=== PATIENT | female | born 1970 | race Caucasian/White ===

== ENCOUNTER 2016-09-06 23:31 | Inpatient (IN) | payer BC ==
[2016-09-06] MEDS ORDERED: Ondansetron INJ* 2 MG/ML VIAL IV ONE (23:58)
[2016-09-06] MEDS ORDERED: Morphine INJ* 4 MG/ML 1 ML CARPUJECT IV ONE (23:58)
[2016-09-06] MEDS ORDERED: NS 0.9% 1000 ML* 1,000 ML IV ONE (23:58)
--- NOTE | 2016-09-07 00:10 | ED ---
Abdominal Pain/Female - HPI Summary HPI Summary: Patient presents with epigastric and periumbilical pain that began suddenly at 4pm. She had gotten off of work at 2:00 and was having a beer and pretzels when the pain began. She drank some rafa ruma without relief. The pain is sharp and is making her sweat. It radiates to her sides, but not completely around to her back. She has not had pain like this before. Deep breaths make it worse and leaning back, but not laying down, make it better. She denies CP, SOB, urinary symptoms, diarrhea, constipation, vaginal bleeding or fevers. She has her period and has a Mirena for control in her marriage. - History of Current Complaint Chief Complaint: EDAbdPain Stated Complaint: ABD PAIN Time Seen by Provider: 09/06/16 23:44 Hx Obtained From: Patient, Family/Campaign Management Senior Manager ?: No Onset/Duration: Sudden Onset Timing: Constant Severity Initially: Severe Severity Currently: Severe Pain Intensity: 10 Location: Epigastric, Umbilical Radiates: Yes Radiates to: Back Character: Sharp Aggravating Factor(s): Movement, Deep Breaths Alleviating Factor(s): Position - leaning back Associated Signs and Symptoms: Positive: Diaphoresis Allergies/Adverse Reactions: Allergies Allergy/AdvReac Type Severity Reaction Status Date / Time Amoxicillin Allergy Rash Verified 09/06/16 23:37 Erythromycin Allergy Rash Verified 09/06/16 23:37 Penicillins [PCN] Allergy Rash Verified 09/06/16 23:37 Home Medications: Home Medications Cetirizine HCl [Zyrtec Allergy 10 MG TAB] 10 mg PO DAILY 09/07/16 [History Confirmed 09/07/16] Hydrochlorothiazide TAB* [Hydrodiuril TAB*] 25 mg PO DAILY 09/07/16 [History Confirmed 09/07/16] Metoprolol Succinate [Toprol Xl] 50 mg PO DAILY 09/07/16 [History Confirmed 04/16] PMH/Surg Hx/FS Hx/Imm Hx Cardiovascular History: Reports: Hx Hypertension Musculoskeletal History: Reports: Other Musculoskeletal History - morbid obesity - Cancer History Hx Chemotherapy: No Hx Radiation Therapy: No Infectious Disease History: No Infectious Disease History: Denies: Traveled Outside the [place] in Last 30 Days - Family History Known Family History: Positive: None - Social History Occupation: Employed Full-time Lives: With Family Alcohol Use: Weekly Substance Use Type: Reports: None Smoking Status (MU): Never Smoked Tobacco Review of Systems Positive: Skin Diaphoresis. Negative: Fever, Chills Negative: Chest Pain Negative: Shortness Of Breath Positive: Abdominal Pain - epigastric and periumbilical. Negative: Vomiting, Diarrhea, Nausea Positive: no symptoms reported Negative: Edema Negative: Rash, Bruising Negative: Weakness, Paresthesia All Other Systems Reviewed And Are Negative: Yes Physical Exam Triage Information Reviewed: Yes Vital Signs On Initial Exam: Initial Vitals Temp Pulse Resp BP Pulse Ox 96.5 F 70 20 115/86 100 09/06/16 23:37 09/06/16 23:37 09/06/16 23:37 09/06/16 23:37 09/06/16 23:37 Vital Signs Reviewed: Yes Appearance: Positive: Well-Appearing, Pain Distress - Patient is leaning back, and bracing her weight on her arms in obvious discomfort., Obese Skin: Positive: Warm, Skin Color Reflects Adequate Perfusion, Dry, Soft, Diaphoretic Head/Face: Positive: Normal Head/Face Inspection Eyes: Positive: EOMI, YULIA, Conjunctiva Clear ENT: Positive: Hearing grossly normal Neck: Positive: Supple, Nontender, No Lymphadenopathy Respiratory/Lung Sounds: Positive: Clear to Auscultation, Breath Sounds Present Cardiovascular: Positive: RRR Abdomen Description: Positive: Soft. Negative: Nontender - TTP in epigastric and periumbilical region, CVA Tenderness (R), CVA Tenderness (L), Distended - body habitus is limiting, Hepatomegaly, McBurney's Point Tenderness, Peritoneal Signs, Pulsatile Mass Bowel Sounds: Positive: Hypoactive Musculoskeletal: Negative: Edema Left, Edema Right Neurological: Positive: Sensory/Motor Intact, Alert, Oriented to Person Place, Time, NV Bundle Intact Distally Psychiatric: Positive: Affect/Mood Appropriate AVPU Assessment: Alert Diagnostics - Vital Signs Vital Signs Temp Pulse Resp BP Pulse Ox 09/06/16 23:37 96.5 F 70 20 115/86 100 - Laboratory Result Diagrams: 09/07/16 05:29 09/07/16 05:29 Lab Statement: Any lab studies that have been ordered have been reviewed, and results considered in the medical decision making process. - CT No standard instances CT Interpretation: Positive (See Comments) CT Interpretation Completed By: Radiologist - pancreatitis - Ultrasound No standard instances Ultrasound Interpretation: No Acute Changes Ultrasound Interpretation Completed By: Radiologist - EKG No standard instances Cardiac Rate: NL EKG Rhythm: Sinus Rhythm ST Segment: Normal Ectopy: None Re-Evaluation - Re-Evaluation First Eval Re-Evaluation Time: 01:45 Change: Improved - Patient is comfortable Abdominal Pain Fem Course/Dx - Course Course Of Treatment: The patient's labs were discussed with Dr. Christy, who recommended admission. The hospitalist, Dr. Ram, was consulted and agreed to admit. - Diagnoses Differential Diagnosis: Positive: Abdominal Aortic Aneurysm, Bowel Obstruction, Gall Bladder Disease, Hepatitis, Ovarian Cyst, Pancreatitis, Renal Colic, Urinary Tract Infection Provider Diagnoses: Pancreatitis - Provider Notifications Discussed Care Of Patient With: Dr. Christy, ED attending; Dr. Ram, hospital medicine. Instructed by Provider To: Admit As Inpatient Discharge - Discharge Plan Condition: Stable Disposition: ADMITTED TO [facility]
[2016-09-07 00:21] LABS: Hematocrit 43 % (35-47); Hemoglobin 14.5 g/dl (12.0-16.0); Mean Corpuscular HGB Conc 34 g/dl (31-36); Mean Corpuscular Hemoglobin 30 pg (27-31); Mean Corpuscular Volume 89 fL (80-97); Mean Platelet Volume 11 um3 (7.4-10.4); Red Blood Count 4.84 10^6/ul (4.0-5.4); Red Cell Distribution Width 13 % (10.5-15); White Blood Count 11.8 10^3/ul (3.5-10.8)
[2016-09-07] MEDS ORDERED: Morphine INJ* 4 MG/ML 1 ML CARPUJECT IV ONE (00:26)
[2016-09-07 00:32] LABS: Albumin 4.2 g/dL (3.2-5.2); BUN/Creatinine Ratio 15.9 (8-20); C Reactive Protein 10.02 mg/L (< 5.00); Calcium 9.6 mg/dL (8.6-10.3); EGFR African American 96.1 (>60); EGFR Non-African American 74.7 (>60); Potassium 3.7 mmol/L (3.5-5.0); Total Bilirubin 1.5 mg/dL (0.2-1.0); Total Protein 7.2 g/dL (6.4-8.9)
[2016-09-07 00:33] LABS: Troponin I 0.01 ng/mL (<0.04)
[2016-09-07] MEDS ORDERED: Iohexol 300* (CONTRAST) 10 ML SDV IV ONE (01:00)
--- NOTE | 2016-09-07 01:37 | HP ---
H&P (Free Text) History and Physical: PCP: Sammy Terrazas MD Date/Time of Evaluation: 09/07/2016 0115 CC: epigastric pain HPI: Mrs Mcmanus is a 45YO morbidly obese female HX HTN who reports coming home from work, drinking a beer, and subsequently developing upper abdominal "gas" associated with nausea around 1600. By 2300, the epigastric discomfort had become 10/10 dull/aching and without alleviating factors. Deep inspiration, movement, cough, etc increased the pain. She did not vomit, but reports some constipation. She had some chills and sweats, but no fevers. She has no history of similar. ED evaluation is positive for gall stones and acute pancreatitis. PMedHx HTN Allergies Amoxicillin Allergy (Verified 09/06/16 23:37) Rash Erythromycin Allergy (Verified 09/06/16 23:37) Rash Penicillins [PCN] Allergy (Verified 09/06/16 23:37) Rash Ambulatory Orders Cetirizine HCl [Zyrtec Allergy 10 MG TAB] 10 mg PO DAILY 09/07/16 Hydrochlorothiazide TAB* [Hydrodiuril TAB*] 25 mg PO DAILY 09/07/16 Metoprolol Succinate [Toprol Xl] 50 mg PO DAILY 09/07/16 PSurgHx R knee arthroscopy for meniscal tear tonsillectomy SocHx: no tobacco or recreational drugs, 1-2 beers nightly; lives with her ; works at [employer]; full code status FamHx: positive for DM & HTN ROS: as above, otherwise reviewed and all were negative Constitutional: NAD, normally developed, morbidly obese white female vitals: Vital Signs Temp 36.4 C 09/07/16 03:06 Pulse 62 09/07/16 03:06 Resp 18 09/07/16 03:30 BP 135/74 09/07/16 03:06 Pulse Ox 93 09/07/16 03:06 Intake & Output 09/06/16 09/06/16 09/07/16 11:59 23:59 11:59 Intake Total 1002 Balance 1002 Weight 125.191 kg 127.097 kg Intake: IV Fluids 1002 HEENM: atraumatic; sclera/conjunctiva: non-icteric/clear; hearing: clinically intact; oropharynx: clear, mucosa tacky Neck: soft tissue: non-tender; thyroid: normal Pulmonary: clear to auscultation bilaterally, good aeration, no accessory muscle use CV: RR/RR, normal S1S2, no carotid bruit, no jugular venous distention, 2+ B DP/ PT, trace BLE edema Abdominal: soft, non-distended, diffusely moderately tender worst in epigastrum , no rebound/guarding/rigidity, hypoactive bowel sounds, no hepatosplenomegaly or masses, no costovertebral angle tenderness Musculoskeletal: general: grossly intact; gait: stable Integumental: normal appearance and texture of exposed skin Psychiatric orientation: AA&O to PPS affect: calm mood: cooperative eye contact: good content: reliable responses: timely insight: good Testing: Lab Results 09/07/16 09/07/16 09/07/16 Range/Units 00:05 00:05 00:05 WBC 11.8 H (3.5-10.8) 10^3/ul RBC 4.84 (4.0-5.4) 10^6/ul Hgb 14.5 (12.0-16.0) g/dl Hct 43 (35-47) % MCV 89 (80-97) fL MCH 30 (27-31) pg MCHC 34 (31-36) g/dl RDW 13 (10.5-15) % Plt Count 182 (150-450) 10^3/ul MPV 11 H (7.4-10.4) um3 Neut % (Auto) 76.8 (38-83) % Lymph % (Auto) 14.8 L (25-47) % Henderson % (Auto) 6.4 (1-9) % Eos % (Auto) 1.4 (0-6) % Baso % (Auto) 0.6 (0-2) % Absolute Neuts (auto) 9.1 H (1.5-7.7) 10^3/ul Absolute Lymphs (auto) 1.7 (1.0-4.8) 10^3/ul Absolute Monos (auto) 0.8 (0-0.8) 10^3/ul Absolute Eos (auto) 0.2 (0-0.6) 10^3/ul Absolute Basos (auto) 0.1 (0-0.2) 10^3/ul Absolute Nucleated RBC 0 10^3/ul Nucleated RBC % 0 Sodium 134 (133-145) mmol/L Potassium 3.7 (3.5-5.0) mmol/L Chloride 100 L (101-111) mmol/L Carbon Dioxide 26 (22-32) mmol/L Anion Gap 8 (2-11) mmol/L BUN 13 (6-24) mg/dL Creatinine 0.82 (0.51-0.95) mg/dL Est GFR ( Amer) 96.1 (>60) Est GFR (Non-Af Amer) 74.7 (>60) BUN/Creatinine Ratio 15.9 (8-20) Glucose 121 H (70-100) mg/dL Lactic Acid 1.5 (0.5-2.0) mmol/L Calcium 9.6 (8.6-10.3) mg/dL Total Bilirubin 1.50 H (0.2-1.0) mg/dL AST 307 H (13-39) U/L ALT 198 H (7-52) U/L Alkaline Phosphatase 86 (34-104) U/L Troponin I 0.01 (<0.04) ng/mL C-Reactive Protein 10.02 H (< 5.00) mg/L Total Protein 7.2 (6.4-8.9) g/dL Albumin 4.2 (3.2-5.2) g/dL Globulin 3.0 (2-4) g/dL Albumin/Globulin Ratio 1.4 (1-3) Amylase 823 H (29-103) U/L Lipase 3130 H (11.0-82.0) U/L ECG, personally reviewed: NSR rate 68, T-wave inversion in III CT abd/pel W: ordered, pending Impression: 45F presenting with acute pancreatitis ? etiology DIAGNOSIS & PLAN Primary acute pancreatitis : IVFs : strict I&Os : pain control via hydromorphone SOUND TECHNICIAN : anti-emetics : incentive spirometry : NPO : supportive care Secondary HTN : hold anti-hypertensives in current setting, restart when clinically indicated Admission Rational: inpatient for management of acute pancreatitis inappropriate for outpatient setting DVTp: SCDs & heparin SQ Code Status: full HCP:
[2016-09-07] MEDS ORDERED: HYDROmorphone INJ* 1 MG/ML CARPUJECT SYRINGE IV ONE ×2 (02:30→04:00)
[2016-09-07] MEDS ORDERED: LORazepam INJ* 2 MG/ML 1 ML VIAL IV PRN (03:14)
[2016-09-07] MEDS ORDERED: Ondansetron INJ* 2 MG/ML VIAL IV PRN (03:14)
[2016-09-07] MEDS ORDERED: PROCHLORPERAZINE INJ 5 MG/ML 2 ML VIAL IV PRN (03:14)
[2016-09-07] MEDS ORDERED: HYDROmorphone PCA* 20 MG/20 ML PCA.SYRING IVPB SCH (04:00)
[2016-09-07 05:58] LABS: Hematocrit 42 % (35-47); Hemoglobin 14.2 g/dl (12.0-16.0); Mean Corpuscular HGB Conc 34 g/dl (31-36); Mean Corpuscular Hemoglobin 31 pg (27-31); Mean Corpuscular Volume 91 fL (80-97); Mean Platelet Volume 11 um3 (7.4-10.4); Red Blood Count 4.57 10^6/ul (4.0-5.4); Red Cell Distribution Width 13 % (10.5-15); White Blood Count 15.9 10^3/ul (3.5-10.8)
[2016-09-07 06:22] LABS: Albumin 4.2 g/dL (3.2-5.2); BUN/Creatinine Ratio 14.1 (8-20); Calcium 9.3 mg/dL (8.6-10.3); Direct Bilirubin 0.3 mg/dL (0.03-0.18); EGFR African American 101.8 (>60); EGFR Non-African American 79.2 (>60); Globulin 2.8 g/dL (2-4); Potassium 4.8 mmol/L (3.5-5.0); Total Bilirubin 1.3 mg/dL (0.2-1.0)
--- NOTE | 2016-09-07 07:38 | RAD ---
INDICATION: Epigastric pain. COMPARISON: Correlation is made with a CT of the abdomen and pelvis of the same date. TECHNIQUE: Multiple real-time images of the right upper quadrant were obtained. FINDINGS: There are gallstones present. No gallbladder wall thickening or pericholecystic fluid is present. No intra or extrahepatic ductal distention is present. The common bile duct measured 0.6 cm in diameter. The liver is normal in size and increased in echogenicity which correlates with fatty infiltration on the prior CT study. There appears be focal sparing adjacent to the gallbladder. No focal hepatic abnormality is seen. The pancreas is partially obscured by overlying bowel gas. The right kidney is normal in size without evidence for hydronephrosis. The results of this exam were called to the emergency department charge nurse Aditi. IMPRESSION: 1. CHOLELITHIASIS. 2. HEPATIC STEATOSIS.
--- NOTE | 2016-09-07 08:15 | RAD ---
Indication: Epigastric pain. Contrast: Administered 150.2 ml of OMNIPAQUE 300 mg/ml CT of the abdomen and pelvis was performed after oral and IV contrast administration. Coronal and sagittal reconstructed images were obtained. Lung bases demonstrate no pleural fluid, nodules or masses. Heart is of normal size without evidence of pericardial effusion. The liver measures 20 cm in length. It is diffusely decreased in density consistent with hepatic steatosis. There is a hyperenhancing lesion in the left lobe of liver measuring up to 2.6 cm. There may be a central scar noted. Correlation with MRI of the liver is suggested. Tiny focal area of hyperdensity is noted in the right lobe of liver just adjacent to the gallbladder fossa which May represent focal fatty sparing. The gallbladder demonstrates gallstones. No pericholecystic fluid or wall thickening is identified. The common duct is not dilated. The pancreas demonstrates no mass or pancreatic duct dilatation. There is mild enlargement of the pancreas with peripancreatic fluid especially around pancreatic head. This may represent acute pancreatitis. No adrenal lesions are noted. The kidneys demonstrate symmetric nephrograms without focal lesions. No retroperitoneal lymphadenopathy is noted. CT of the pelvis demonstrates urinary bladder to be unremarkable. IUD is in place. The ovaries demonstrate cysts in both ovaries. No hernias are noted. IMPRESSION: PERIPANCREATIC FLUID CONSISTENT WITH PANCREATITIS. DIFFUSE FATTY INFILTRATION OF LIVER WITH HYPERENHANCING LESION IN THE LEFT LOBE. CORRELATION WITH MRI IS SUGGESTED.
[2016-09-07] MEDS ORDERED: HYDROmorphone INJ* 1 MG/ML CARPUJECT SYRINGE IV SLOW PU PRN (09:37)
--- NOTE | 2016-09-07 09:55 | PN ---
Subjective Date of Service: 09/07/16 Interval History: Patient seen this morning. Says pain is controlled, less than a one. She has felt sweaty. No SOB. Family History: Unchanged from Admission Social History: Unchanged from Admission Past Medical History: Unchanged from Admission Objective Active Medications: Acetaminophen (Tylenol Tab*) 650 mg PO Q6H PRN Hydromorphone HCl (Dilaudid Iv*) 0.5 mg IV SLOW PU Q2H PRN Lactated Ringer's (Lactated Ringers 1000 Ml Bag*) 1,000 mls @ 150 mls/hr IV PER RATE ROSANA Lorazepam (Ativan Inj*) 1 mg IV BEDTIME PRN Ondansetron HCl (Zofran Inj*) 4 mg IV Q6H PRN Pantoprazole Sodium (Protonix Iv*) 40 mg IV DAILY ROSANA Prochlorperazine Edisylate (Compazine Inj*) 10 mg IV Q6H PRN Vital Signs 09/07/16 09/07/16 09/07/16 01:30 02:00 02:45 Temperature 97.5 F Pulse Rate 66 65 62 Respiratory 15 16 18 Rate Blood Pressure 137/78 137/79 135/74 (mmHg) O2 Sat by Pulse 94 95 93 Oximetry 09/07/16 09/07/16 09/07/16 03:38 06:19 06:27 Temperature Pulse Rate 62 Respiratory 18 18 18 Rate Blood Pressure 135/74 (mmHg) O2 Sat by Pulse 94 Oximetry 09/07/16 09/07/16 09/07/16 06:47 07:19 07:34 Temperature 97.4 F Pulse Rate 62 70 Respiratory 18 15 15 Rate Blood Pressure 135/74 116/75 (mmHg) O2 Sat by Pulse 94 98 Oximetry Oxygen Devices in Use Now: None Appearance: Middle-aged, F, laying in bed in NAD Eyes: No Scleral Icterus Ears/Nose/Mouth/Throat: - - Dry MM Neck: NL Appearance and Movements; NL JVP Respiratory: Symmetrical Chest Expansion and Respiratory Effort, Clear to Auscultation Cardiovascular: NL Sounds; No Murmurs; No JVD, RRR Abdominal: - - Obese, soft, non-distended, TTP in epigastric area, BS+ Lymphatic: No Cervical Adenopathy Extremities: No Edema Skin: No Rash or Ulcers Neurological: Alert and Oriented x 3 Result Diagrams: 09/07/16 05:29 03/10/17 05:29 Assess/Plan/Problems-Billing Assessment: Acute pancreatitis in a 45 yo F with hx of obesity and HTN - Patient Problems (1) Acute pancreatitis Current Visit: Yes Comment: Continue anaglesia, will stop UI ARCHITECT and transition to prn IV dilaudid. Continue IVF, antiemetics. Keep NPO for now. I think etiology is more likely EtOH than gallstones with normal alk phos and AST>ALT. No stones in ducts on current imaging and no ductal dilatation. Hold HCTZ. Can consider cholecystectomy as outpatient. (2) HTN (hypertension) Current Visit: Yes Comment: Hold Metoprolol and HCTZ. Consider switching HCTZ to different agent not associated with pancreatitis. (3) DVT prophylaxis Current Visit: Yes Comment: HSQ Status and Disposition: Inpatient, likely discharge in 24-48 hours
[2016-09-07] MEDS: Pantoprazole IV* 40 MG IV SCH (10:01)
[2016-09-07] MEDS: Heparin VIAL(*) 5000 UNITS/ML VIAL (FIVE THOUSAND) SUBCUT SCH ×2 (15:15→21:57)
[2016-09-07] MEDS: Acetaminophen TAB* 325 MG PO PRN ×2 (15:41→21:50)
[2016-09-08] MEDS: Heparin VIAL(*) 5000 UNITS/ML VIAL (FIVE THOUSAND) SUBCUT SCH ×3 (06:35→21:29)
[2016-09-08] MEDS: Acetaminophen TAB* 325 MG PO PRN (06:44)
--- NOTE | 2016-09-08 07:09 | PN ---
Subjective Date of Service: 09/08/16 Interval History: Patient seen this morning. Says pain was about a 4 at one point last night, otherwise feeling well. Some nasal congestion. No fever or chills. Family History: Unchanged from Admission Social History: Unchanged from Admission Past Medical History: Unchanged from Admission Objective Active Medications: Acetaminophen (Tylenol Tab*) 650 mg PO Q6H PRN Heparin Sodium (Porcine) (Heparin Vial(*)) 5,000 units SUBCUT Q8HR ROSANA Hydromorphone HCl (Dilaudid Iv*) 0.5 mg IV SLOW PU Q2H PRN Lactated Ringer's (Lactated Ringers 1000 Ml Bag*) 1,000 mls @ 150 mls/hr IV PER RATE ROSANA Lorazepam (Ativan Inj*) 1 mg IV BEDTIME PRN Ondansetron HCl (Zofran Inj*) 4 mg IV Q6H PRN Pantoprazole Sodium (Protonix Iv*) 40 mg IV DAILY ROSANA Prochlorperazine Edisylate (Compazine Inj*) 10 mg IV Q6H PRN Vital Signs 09/07/16 09/07/16 09/07/16 07:19 07:34 08:00 Temperature 97.4 F Pulse Rate 70 Respiratory 15 15 15 Rate Blood Pressure 116/75 (mmHg) O2 Sat by Pulse 98 Oximetry 09/07/16 09/07/16 09/07/16 10:10 11:19 15:38 Temperature 97.3 F 97.4 F 97.5 F Pulse Rate 63 69 63 Respiratory 15 14 Rate Blood Pressure 120/69 103/61 113/60 (mmHg) O2 Sat by Pulse 95 98 100 Oximetry 09/07/16 09/07/16 09/07/16 19:43 20:00 22:06 Temperature 97.7 F Pulse Rate 81 Respiratory 17 16 16 Rate Blood Pressure 127/73 (mmHg) O2 Sat by Pulse 93 Oximetry 09/07/16 09/07/16 23:06 23:52 Temperature 97.6 F Pulse Rate 73 Respiratory 16 16 Rate Blood Pressure 116/70 (mmHg) O2 Sat by Pulse 97 Oximetry Oxygen Devices in Use Now: None Appearance: Middle-aged, F, laying in bed in NAD Eyes: No Scleral Icterus Ears/Nose/Mouth/Throat: - - Dry MM Neck: NL Appearance and Movements; NL JVP Respiratory: Symmetrical Chest Expansion and Respiratory Effort, Clear to Auscultation Cardiovascular: NL Sounds; No Murmurs; No JVD, RRR Abdominal: - - Obese, soft, non-distended, mild TTP in epigastric area Lymphatic: No Cervical Adenopathy Extremities: No Edema Skin: No Rash or Ulcers Neurological: Alert and Oriented x 3 Result Diagrams: 09/07/16 05:29 09/07/16 05:29 Assess/Plan/Problems-Billing Assessment: Acute pancreatitis in a 45 yo F with hx of obesity and HTN - Patient Problems (1) Acute pancreatitis Current Visit: Yes Comment: Start clear liquids. Continue anaglesia with IV dilaudid. Continue IVF, antiemetics. I think etiology is more likely EtOH than gallstones with normal alk phos and AST>ALT. No stones in ducts on current imaging and no ductal dilatation. Hold HCTZ. Can consider cholecystectomy as outpatient. (2) HTN (hypertension) Current Visit: Yes Comment: Hold Metoprolol and HCTZ. Consider switching HCTZ to different agent not associated with pancreatitis. (3) DVT prophylaxis Current Visit: Yes Comment: HSQ Status and Disposition: Inpatient, likely discharge in 24-48 hours
[2016-09-08 07:54] LABS: Hematocrit 39 % (35-47); Hemoglobin 13.2 g/dl (12.0-16.0); Mean Corpuscular HGB Conc 34 g/dl (31-36); Mean Corpuscular Hemoglobin 31 pg (27-31); Mean Corpuscular Volume 92 fL (80-97); Mean Platelet Volume 12 um3 (7.4-10.4); Red Blood Count 4.22 10^6/ul (4.0-5.4); Red Cell Distribution Width 13 % (10.5-15)
[2016-09-08] MEDS: Pantoprazole IV* 40 MG IV SCH (08:11)
[2016-09-08 08:12] LABS: BUN/Creatinine Ratio 11.5 (8-20); Calcium 8.8 mg/dL (8.6-10.3); EGFR African American 101.8 (>60); EGFR Non-African American 79.2 (>60); Potassium 3.4 mmol/L (3.5-5.0)
[2016-09-08] MEDS: Cetirizine* 10 MG TAB PO SCH (08:12)
[2016-09-09] MEDS: Heparin VIAL(*) 5000 UNITS/ML VIAL (FIVE THOUSAND) SUBCUT SCH (05:54)
[2016-09-09] MEDS: Pantoprazole IV* 40 MG IV SCH (07:58)
[2016-09-09] MEDS: Cetirizine* 10 MG TAB PO SCH (07:58)
[2016-09-09 08:22] LABS: BUN/Creatinine Ratio 7.4 (8-20); Calcium 8.7 mg/dL (8.6-10.3); EGFR African American 97.5 (>60); EGFR Non-African American 75.8 (>60); Potassium 3.4 mmol/L (3.5-5.0)
[2016-09-09 09:48] VITALS: BP 129/79
--- NOTE | 2016-09-10 00:51 | DS ---
DISCHARGE SUMMARY: DATE OF ADMISSION: 09/07/16 DATE OF DISCHARGE: 09/09/16 PRIMARY CARE PHYSICIAN: Aaron Terrazas MD. PRINCIPAL DISCHARGE DIAGNOSIS: Acute pancreatitis. SECONDARY DIAGNOSIS: Hypertension. DISCHARGE MEDICATION REGIMEN: 1. Percocet 5/325 mg one tablet by mouth every 4 hours as needed for pain. 2. Cetirizine 10 mg by mouth daily. 3. Metoprolol succinate 50 mg by mouth daily. STUDIES DONE DURING HOSPITALIZATION: Gallbladder ultrasound, impression: Cholelithiasis, hepatic steatosis, common bile duct is 0.6 cm in diameter. No intra or extrahepatic ductal dilatation. CT abdomen and pelvis with contrast, impression: Peripancreatic fluid consistent with pancreatitis, diffuse fatty infiltration of liver with hyperenhancing lesion in the left lobe, correlation with MRI is suggested. HISTORY OF PRESENT ILLNESS AND HOSPITAL SUMMARY: Please see the full history and physical done by Dr. Billy Patino for full details. Briefly, Ms. Mcmanus is a 45-year-old female with a past medical history of morbid obesity and hypertension, who presented to the hospital with abdominal pain. This happened shortly after drinking a beer at home along with some pretzels. In the ED, she was found to have elevated lipase as well as elevated LFTs, AST and ALT; however, alk phos was normal. The patient was made n.p.o. and given IV fluids and analgesia with subsequent improvement in her symptoms and labs. As noted on imaging, it was not clear that this was secondary to gallstones. The patient does have cholelithiasis; however, her alk phos was normal and there were no stones noted in the common bile duct during imaging. This could be possibly due to her alcohol use. Hydrochlorothiazide can sometimes cause pancreatitis, so this was held on discharge. The patient was continued on metoprolol only. Her diet was advanced and she tolerated a low-fat diet with no issue. She will be discharged on a low-fat diet and was instructed to follow up with her PCP to discuss whether she would benefit from a surgical consultation for cholecystectomy. TIME SPENT: Total time spent on this discharge, 45 minutes. This is a summary of the hospitalization, please see the full medical record for further details. CC: Aaron Terrazas MD * [id number]/CPS #: [id number] MTDD
== END 2016-09-09 10:46 | disposition home or self-care (01) | DRG 282 ==
LOC: ED 23:31 → MED 09-07 01:13
PROVIDERS: ADMIT Hospitalist; ATTEND Hospitalist
DX: K85.20 Alcohol induced acute pancreatitis without necrosis or infection (principal); Z68.42 Body mass index [BMI] 45.0-49.9, adult; K76.0 Fatty (change of) liver, not elsewhere classified; K80.20 Calculus of gallbladder without cholecystitis without obstruction; Z72.89 Other problems related to lifestyle; E66.01 Morbid (severe) obesity due to excess calories; I10 Essential (primary) hypertension; Z82.49 Family history of ischemic heart disease and other diseases of the circulatory system; Z83.3 Family history of diabetes mellitus; Z88.0 Allergy status to penicillin; Z88.1 Allergy status to other antibiotic agents
CPT/HCPCS: 36415; 74177; 76705; 80048; 80053; 80076; 82150; 83605; 83690; 84484; 85025; 85027; 86140; 93005; A9270-GY; J1170; J1644; J2270; J2405; Q9967

== ENCOUNTER 2018-06-29 08:02 | Emergency (ER) | payer BC, OTHER ==
[2018-06-29] MEDS ORDERED: Dexamethasone IV* 4 MG/ML 1 ML (4 MG) IV SLOW PU ONE (08:20)
[2018-06-29] MEDS ORDERED: Famotidine IV* 10 MG/ML 2 ML (20 mg) IV SLOW PU ONE (08:20)
[2018-06-29] MEDS ORDERED: NS 0.9% 1000 ML* 1,000 ML IV ONE (08:20)
[2018-06-29] MEDS ORDERED: diPHENhydraMINE PO* 50 MG PO ONE (08:21)
[2018-06-29 08:41] LABS: ABS Basophils 0 10^3/ul (0-0.2); ABS Eosinophils 0.2 10^3/ul (0-0.6); ABS Lymphocytes 1.9 10^3/ul (1.0-4.8); ABS Monocytes 0.4 10^3/ul (0-0.8); ABS Neutrophils 4.2 10^3/ul (1.5-7.7); ABS Nucleated RBC 0 10^3/ul; Eosinophil % 3.5 %; Hematocrit 42 % (35-47); Hemoglobin 14.6 g/dl (12.0-16.0); Lymphocyte % 28.2 %; Mean Corpuscular HGB Conc 35 g/dl (31-36); Mean Corpuscular Hemoglobin 32 pg (27-31); Mean Corpuscular Volume 91 fL (80-97); Mean Platelet Volume 10.8 fL (7.4-10.4); Nucleated Red Blood Cells % 0; Platelet Count 167 10^3/ul (150-450); Red Blood Count 4.64 10^6/ul (4.00-5.40); Red Cell Distribution Width 13 % (10.5-15); White Blood Count 6.8 10^3/ul (3.5-10.8)
[2018-06-29 09:02] LABS: Albumin 4.4 g/dL (3.2-5.2); Albumin/Globulin Ratio 1.7 (1-3); BUN/Creatinine Ratio 19.3 (8-20); Calcium 9.6 mg/dL (8.6-10.3); EGFR Non-African American 68.3 (>60); Globulin 2.6 g/dL (2-4); Potassium 3.9 mmol/L (3.5-5.0); Total Bilirubin 0.9 mg/dL (0.2-1.0)
--- NOTE | 2018-06-29 11:31 | ED ---
Allergic Reaction/Systemic - HPI Summary HPI Summary: Patient is a 47-year-old female presenting to the ED with possible allergic reaction. She stated last evening at around 9:30 PM after proximal 1 hour of eating 2 separate [place] cookies which were dropped off by friends she began having left lower lip swelling which radiated to the bilateral cheeks. Denied any airway difficulty, SOB or difficulty swallowing. She states she took 50 mg Benadryl by mouth just before bed and was able to sleep tonight. She woke this morning which which she felt like was worsening symptoms and came to the ED. She denies any known known allergies. She does endorse taking lisinopril/ Hydrochlorothiazide x approximately 6 months and has never had a reaction. She has never had a allergic reaction in the past to anything. - History of Current Complaint Chief Complaint: EDAllergicReaction Time Seen by Provider: 06/29/18 08:17 Hx Obtained From: Patient Onset/Duration: Sudden Onset Timing: Constant Severity Initially: Moderate Severity Currently: Moderate Pain Intensity: 0 Pain Scale Used: 0-10 Numeric Location: Discrete @ - left lower lip swelling Associated Signs And Symptoms: Positive: Negative - Related Hx Possible Reaction To: Unknown - Allergies/Home Medications Allergies/Adverse Reactions: Allergies Allergy/AdvReac Type Severity Reaction Status Date / Time amoxicillin Allergy Rash Verified 06/29/18 08:11 erythromycin base Allergy Rash Verified 06/29/18 08:11 Penicillins Allergy Rash Verified 06/29/18 08:11 Home Medications: Home Medications Lisinopril/HCTZ 10/12.5(NF) [Zestoretic 10/12.5(NF)] 1 tab PO DAILY 06/29/18 [ History Confirmed 06/29/18] PMH/Surg Hx/FS Hx/Imm Hx Previously Healthy: Yes Endocrine/Hematology History: Denies: Hx Diabetes Cardiovascular History: Reports: Hx Hypertension Denies: Hx Pacemaker/ICD History: Denies: Hx Dialysis, Hx Renal Disease Musculoskeletal History: Reports: Other Musculoskeletal History - morbid obesity Sensory History: Reports: Hx Contacts or Glasses Denies: Hx Hearing Aid Opthamlomology History: Reports: Hx Contacts or Glasses Psychiatric History: Denies: Hx Panic Disorder - Cancer History Hx Chemotherapy: No Hx Radiation Therapy: No - Surgical History Surgery Procedure, Year, and Place: KNEE Hx Anesthesia Reactions: No - Immunization History Hx Pertussis Vaccination: No Immunizations Up to Date: Yes Infectious Disease History: No Infectious Disease History: Denies: Traveled Outside the [place] in Last 30 Days - Family History Known Family History: Positive: None - Social History Occupation: Employed Full-time Lives: With Family Alcohol Use: Weekly Alcohol Amount: "A couple" Hx Substance Use: No Substance Use Type: Reports: None Hx Tobacco Use: No Smoking Status (MU): Never Smoked Tobacco Review of Systems Constitutional: Negative Positive: Skin Diaphoresis. Negative: Fever, Chills, Fatigue Positive: Other - lower lip swelling. Negative: Epistaxis, Dental Pain Negative: Palpitations, Chest Pain Negative: Abdominal Pain, Vomiting, Diarrhea, Nausea Negative: Arthralgia, Myalgia Positive: Other - lip swelling Neurological: Negative All Other Systems Reviewed And Are Negative: Yes Physical Exam Triage Information Reviewed: Yes Vital Signs On Initial Exam: Initial Vitals Temp Pulse Resp BP Pulse Ox 96.5 F 85 16 123/74 98 06/29/18 08:08 06/29/18 08:08 06/29/18 08:08 06/29/18 08:08 06/29/18 08:08 Vital Signs Reviewed: Yes Appearance: Positive: Well-Appearing, Well-Nourished Skin: Positive: Warm, Skin Color Reflects Adequate Perfusion Head/Face: Positive: Normal Head/Face Inspection, Other - lip swelling without other swelling of the cheeks or lips Eyes: Positive: EOMI, YULIA, Conjunctiva Clear Neck: Positive: Supple, No Lymphadenopathy Respiratory/Lung Sounds: Positive: Clear to Auscultation, Breath Sounds Present Cardiovascular: Positive: RRR, Pulses are Symmetrical in both Upper and Lower Extremities Musculoskeletal: Positive: Normal, Strength/ROM Intact Neurological: Positive: Sensory/Motor Intact, Alert, Oriented to Person Place, Time, Speech Normal Psychiatric: Positive: Normal, Affect/Mood Appropriate AVPU Assessment: Alert Diagnostics - Vital Signs Vital Signs Temp Pulse Resp BP Pulse Ox 06/29/18 10:32 85 22 125/79 94 06/29/18 10:02 84 32 127/77 94 06/29/18 10:00 79 16 96 06/29/18 09:32 80 19 124/77 98 06/29/18 09:02 79 21 124/92 95 06/29/18 09:00 81 24 94 06/29/18 08:41 90 96 06/29/18 08:08 96.5 F 85 16 123/74 98 - Laboratory Lab Results: Lab Results 06/29/18 06/29/18 06/29/18 Range/Units 08:27 08:27 08:27 WBC 6.8 (3.5-10.8) 10^3/ul RBC 4.64 (4.00-5.40) 10^6/ul Hgb 14.6 (12.0-16.0) g/dl Hct 42 (35-47) % MCV 91 (80-97) fL MCH 32 H (27-31) pg MCHC 35 (31-36) g/dl RDW 13 (10.5-15) % Plt Count 167 (150-450) 10^3/ul MPV 10.8 H (7.4-10.4) fL Neut % (Auto) 62.0 % Lymph % (Auto) 28.2 % Callahan % (Auto) 5.6 % Eos % (Auto) 3.5 % Baso % (Auto) 0.7 % Absolute Neuts (auto) 4.2 (1.5-7.7) 10^3/ul Absolute Lymphs (auto) 1.9 (1.0-4.8) 10^3/ul Absolute Monos (auto) 0.4 (0-0.8) 10^3/ul Absolute Eos (auto) 0.2 (0-0.6) 10^3/ul Absolute Basos (auto) 0 (0-0.2) 10^3/ul Absolute Nucleated RBC 0 10^3/ul Nucleated RBC % 0 Sodium 137 (135-145) mmol/L Potassium 3.9 (3.5-5.0) mmol/L Chloride 102 (101-111) mmol/L Carbon Dioxide 26 (22-32) mmol/L Anion Gap 9 (2-11) mmol/L BUN 17 (6-24) mg/dL Creatinine 0.88 (0.51-0.95) mg/dL Est GFR ( Amer) 82.6 (>60) Est GFR (Non-Af Amer) 68.3 (>60) BUN/Creatinine Ratio 19.3 (8-20) Glucose 127 H (70-100) mg/dL Lactic Acid 1.1 (0.5-2.0) mmol/L Calcium 9.6 (8.6-10.3) mg/dL Total Bilirubin 0.90 (0.2-1.0) mg/dL AST 18 (13-39) U/L ALT 16 (7-52) U/L Alkaline Phosphatase 56 (34-104) U/L Total Creatine Kinase 74 (10-223) U/L Total Protein 7.0 (6.4-8.9) g/dL Albumin 4.4 (3.2-5.2) g/dL Globulin 2.6 (2-4) g/dL Albumin/Globulin Ratio 1.7 (1-3) Result Diagrams: 06/29/18 08:27 06/29/18 08:27 Lab Statement: Any lab studies that have been ordered have been reviewed, and results considered in the medical decision making process. Allergic Reaction Course/Dx - Course Course Of Treatment: Patient is evaluated for possible allergic reaction. On arrival, patient has left lower lip swelling without bilateral cheek swelling. Airway is patent. Mallampati score 1. She denies any airway compromise, difficulty breathing, SOB, CP, tingling in the throat or feelings of throat tightening. She is able to eat and drink okay. She was concerned as after 2 Benadryl last evening, she feels the swelling decreased, however this morning she feels the swelling increased back to where it was just prior to her administration of Benadryl last evening. She denies any known allergies. She did eat 2 cookies from friends last evening and allergic reaction occurred exactly when and where after. She has been taking lisinopril for approximately 6 months and has never had a problem with this medication. She is given Decadron, to saline, by mouth Benadryl and IV famotidine. She states she feels improved, however slight left lower lip swelling remains. As the airway is patent and she has no other complaints, she'll be discharged with prednisone, famotidine and Benadryl. She will discontinue her lisinopril at this time and follow up with her PCP regarding an alternative. She will remain on her metoprolol. - Diagnoses Provider Diagnoses: Allergic reaction, Lip swelling Discharge - Sign-Out/Discharge Documenting (check all that apply): Patient Departure - Discharge Plan Condition: Stable Disposition: HOME Prescriptions: Famotidine TAB* [Pepcid 20 MG TAB*] 20 mg PO BID #10 tab predniSONE TAB* [Deltasone TAB*] 50 mg PO DAILY #5 tab MDD 1 Patient Education Materials: Angioedema (ED) Referrals: Cary BARRETT,Kristin Tay [Primary Care Provider] - Additional Instructions: Please follow up with PCP If you develop any worsening symptoms, return to the ED immediately Prednisone - start tomorrow - take in the morning once daily x 5 days Famotidine, first dose is this evening, take twice daily x 4 days Benadryl 50mg three times daily if symptoms continue, otherwise, only at bedtime Discontinue your lisinopril. - Billing Disposition and Condition Condition: STABLE Disposition: Home
[2018-06-29 11:42] VITALS: BP 120/95
== END 2018-06-29 11:20 | disposition home or self-care (01) ==
LOC: ED 08:02
DX: T78.40XA Allergy, unspecified, initial encounter (principal); X58.XXXA Exposure to other specified factors, initial encounter; R22.0 Localized swelling, mass and lump, head; I10 Essential (primary) hypertension; E66.01 Morbid (severe) obesity due to excess calories
CPT/HCPCS: 36415; 80053; 82550; 83605; 85025; 96361; 96374; 96375; 99283; A9270-GY; J1100

== ENCOUNTER 2019-03-04 01:01 | Emergency (ER) | payer BC ==
--- NOTE | 2019-03-04 01:31 | ED ---
Allergic Reaction/Systemic - HPI Summary HPI Summary: This patient is a 48 year old F presenting to ED with a chief complaint of allergic reaction since 02/26/19. Patient was stung by a bee under her eye a week ago and began to have facial swelling on 02/26/19. Patient was seen at on 02/26/19 and given Keflex and Benadryl. Patient stopped taking Benadryl because she had to go to work. Her symptoms improved until tonight when her left -sided facial swelling worsened. Patient took Benadryl again last night. She has taken a total of 5 doses of Keflex. Patient has had similar symptoms in reaction to Lisinopril. The patient rates the pain 6/10 in severity. Symptoms aggravated by nothing. Symptoms alleviated by nothing. Patient denies fever. Patient states her eye feels full and itchy but not painful. - History of Current Complaint Chief Complaint: EDAllergicReaction Hx Obtained From: Patient Onset/Duration: Gradual Onset, Started days ago - Since 02/26/19, Still Present, Worse Since Timing: Constant, Lasting Days - Since 02/26/19 Severity Initially: Moderate Severity Currently: Moderate Pain Intensity: 6 Pain Scale Used: 0-10 Numeric Location: Discrete @ - Face Character: Swelling, Pruritus Aggravating Factor(s): Nothing Alleviating Factor(s): Nothing Associated Signs And Symptoms: Positive: Negative - Fever - Allergies/Home Medications Allergies/Adverse Reactions: Allergies Allergy/AdvReac Type Severity Reaction Status Date / Time amoxicillin Allergy Rash Verified 03/04/19 01:06 erythromycin base Allergy Rash Verified 03/04/19 01:06 lisinopril Allergy Swelling Verified 03/04/19 01:06 Of Face,Lips,& Throat Penicillins Allergy Rash Verified 03/04/19 01:06 PMH/Surg Hx/FS Hx/Imm Hx Endocrine/Hematology History: Denies: Hx Diabetes, Hx Thyroid Disease Cardiovascular History: Reports: Hx Hypertension Denies: Hx Pacemaker/ICD Respiratory History: Denies: Hx Asthma, Hx Chronic Obstructive Pulmonary Disease (COPD) GI History: Denies: Hx Ulcer History: Denies: Hx Dialysis, Hx Renal Disease Musculoskeletal History: Reports: Other Musculoskeletal History - morbid obesity Sensory History: Reports: Hx Contacts or Glasses Denies: Hx Hearing Aid Opthamlomology History: Reports: Hx Contacts or Glasses Psychiatric History: Denies: Hx Panic Disorder - Cancer History Hx Chemotherapy: No Hx Radiation Therapy: No - Surgical History Surgery Procedure, Year, and Place: R KNEE Hx Anesthesia Reactions: No Infectious Disease History: No Infectious Disease History: Denies: Hx Hepatitis, Hx Human Immunodeficiency Virus (HIV), Traveled Outside the [place] in Last 30 Days - Family History Known Family History: Positive: Cardiac Disease, Hypertension, Diabetes, Renal Disease - Social History Alcohol Use: Weekly Alcohol Amount: "A couple" Hx Substance Use: No Substance Use Type: Reports: None Hx Tobacco Use: No Smoking Status (MU): Never Smoked Tobacco Review of Systems Negative: Fever Eyes: Other - Eye "fullness" and ithcy Skin: Other - Facial swelling, itching All Other Systems Reviewed And Are Negative: Yes Physical Exam - Summary Physical Exam Summary: Constitutional: Well-developed, Well-nourished, Alert. (-) Distressed Skin: Erythema with soft tissue swelling of left cheek and periorbital area HENT: No trismus. No pain w EOM. Eyes: Conjunctiva normal Neck: Musculoskeletal ROM normal neck. (-) JVD, (-) Stridor Cardio: Rhythm regular, tachycardic, Heart sounds normal; Intact distal pulses; Radial pulses are 2+ and symmetric. (-) Murmur Pulmonary/Chest wall: Effort normal. (-) Respiratory distress, (-) Wheezes, (-) Rales Abd: Soft, (-) tenderness, (-) Distension Musculoskeletal: (-) Edema Lymph: (-) Cervical adenopathy Neuro: Alert, Oriented x3 Psych: Mood and affect Normal Triage Information Reviewed: Yes Vital Signs On Initial Exam: Initial Vitals Temp Pulse Resp BP Pulse Ox 97.9 F 114 18 154/106 97 03/04/19 01:02 03/04/19 01:02 03/04/19 01:02 03/04/19 01:02 03/04/19 01:02 Vital Signs Reviewed: Yes Diagnostics - Vital Signs Vital Signs Temp Pulse Resp BP Pulse Ox 03/04/19 01:02 97.9 F 114 18 154/106 97 - Laboratory Result Diagrams: 03/04/19 01:41 03/04/19 01:41 Lab Statement: Any lab studies that have been ordered have been reviewed, and results considered in the medical decision making process. - CT Maxillofacial CT Interpretation Completed By: Radiologist Summary of CT Findings: 1. Mild left facial subcutaneous edema which may reflect cellulitis. No focal abscess is seen. 2. Minimal bilateral maxillary, frontal and ethmoid sinus disease. Dr. Olivarez has reviewed this radiology report. Re-Evaluation - Re-Evaluation First Eval Re-Evaluation Time: 03:20 Change: Worse Comment: Patient states her itching and SCHAFFER has increased. Will give Atarax and Tylenol. Second Eval Re-Evaluation Time: 03:50 Comment: Discussed results with patient. Patient will be discharged home with dx of cellulitis and antibiotic changed to clindamycin. Patient understands and agrees with this plan. Allergic Reaction Course/Dx - Course Course Of Treatment: [id number] female with recent left facial cellulitis on Keflex presents with worsening of cellulitis continued swelling. Physical exam with well-appearing female, erythema to the left cheek and periorbital area, sparing the eye. No pain with extraocular movements. Given failed outpatient therapy with Keflex, will check a CT to assess for underlying abscess. If negative will plan for discharge on clindamycin as patient is systemically well appearing. - Diagnoses Provider Diagnoses: Cellulitis Discharge ED - Sign-Out/Discharge Documenting (check all that apply): Patient Departure - Discharge Patient Received Moderate/Deep Sedation with Procedure: No - Discharge Plan Condition: Stable Disposition: HOME Prescriptions: Clindamycin Cap(NF) [Clindamycin Cap 300 mg Cap(NF)] 300 mg PO Q6H 7 Days #28 cap Patient Education Materials: Cellulitis (ED) Referrals: Kristin Townsend PA [Primary Care Provider] - Additional Instructions: You were seen in the emergency department for cellulitis. Your CT scan did not show any abscess. Please take clindamycin 4 times a day for 7 days. If any studies were not completed at the time of discharge you will be called with the relevant results. Please follow up with your primary care doctor in next 2-3 days and return to emergency department for worsening or concerning symptoms. - Billing Disposition and Condition Condition: STABLE Disposition: Home - Attestation Statements Document Initiated by Scribe: Yes Documenting Scribe: Adama Gonzalez Provider For Whom Scribe is Documenting (Include Credential): Lianna Olivarez MD Scribe Attestation: IAdama, scribed for Lianna Olivarez MD on 03/04/19 at 0444. Scribe Documentation Reviewed: Yes Provider Attestation: The documentation as recorded by the scribe, Adama Gonzalez accurately reflects the service I personally performed and the decisions made by me, Lianna Olivarez MD Status of Scribe Document: Viewed
[2019-03-04] MEDS ORDERED: NS 0.9% 1000 ML** 1,000 ML IV ONE (01:36)
[2019-03-04 01:49] LABS: ABS Basophils 0.1 10^3/ul (0-0.2); ABS Eosinophils 0.3 10^3/ul (0-0.6); ABS Lymphocytes 2.9 10^3/ul (1.0-4.8); ABS Monocytes 0.7 10^3/ul (0-0.8); Eosinophil % 3.3 %; Hematocrit 42 % (35-47); Hemoglobin 14.5 g/dL (12.0-16.0); Mean Corpuscular HGB Conc 35 g/dL (31-36); Mean Corpuscular Hemoglobin 32 pg (27-31); Mean Corpuscular Volume 91 fL (80-97); Mean Platelet Volume 10.5 fL (7.4-10.4); Nucleated Red Blood Cells % 0.1; Platelet Count 175 10^3/uL (150-450); Red Blood Count 4.62 10^6 /uL (3.70-4.87); Red Cell Distribution Width 13 % (10-15)
[2019-03-04 02:04] LABS: Albumin 4.4 g/dL (3.2-5.2); Albumin/Globulin Ratio 1.8 (1-3); BUN/Creatinine Ratio 13.3 (8-20); Calcium 9.9 mg/dL (8.6-10.3); EGFR African American 72.7 (>60); EGFR Non-African American 60.1 (>60); Globulin 2.5 g/dL (2-4); Potassium 4.1 mmol/L (3.5-5.0); Total Bilirubin 0.9 mg/dL (0.2-1.0); Total Protein 6.9 g/dL (6.4-8.9)
[2019-03-04] MEDS ORDERED: Iohexol 300* (CONTRAST) 10 ML SDV IV ONE (02:21)
[2019-03-04] MEDS ORDERED: hydrOXYzine HCL TAB* 25 MG PO ONE (03:20)
[2019-03-04] MEDS ORDERED: Acetaminophen TAB* 325 MG PO ONE (03:20)
[2019-03-04] MEDS ORDERED: Clindamycin CAP* 150 MG PO ONE (03:49)
[2019-03-04 04:07] VITALS: BP 141/89
== END 2019-03-04 04:00 | disposition home or self-care (01) ==
LOC: ED 01:01
DX: L03.211 Cellulitis of face (principal); J32.0 Chronic maxillary sinusitis; J32.1 Chronic frontal sinusitis; J32.2 Chronic ethmoidal sinusitis; I10 Essential (primary) hypertension; Z88.1 Allergy status to other antibiotic agents; Z88.0 Allergy status to penicillin; Z88.8 Allergy status to other drugs, medicaments and biological substances
CPT/HCPCS: 36415; 70487; 80053; 85025; 96360; 96361; 99283; A9270-GY; Q9967

== ENCOUNTER 2019-04-22 02:20 | Inpatient (IN) | payer BC ==
[2019-04-22] MEDS ORDERED: Lidocaine 2% VISCOUS* 15 ML UDC PO ONE (02:41)
[2019-04-22] MEDS ORDERED: Al Hydrox/Mg Hydrox/Simet LIQ* 30 ML UDC PO ONE (02:41)
--- NOTE | 2019-04-22 02:41 | ED ---
Abdominal Pain/Female - HPI Summary HPI Summary: This patient is a 48 year old F presenting to [facility] with a chief complaint of intermittent, sharp ABD pain since 2300 last night. Pt ate chicken bake and stuffing for dinner. Pt reports taking TUMS 2 hours ago, but the pain worsened. She also notes she had pancreatitis 4 years ago. Pt denies previous ABD surgeries. The patient rates the pain 9/10 in severity. Symptoms aggravated by nothing. Symptoms alleviated by nothing. Patient reports SOB, nausea. Patient denies vomiting, fever, diarrhea. Pt takes medication for HTN. Pt does not smoke , but occasionally drinks alcohol and does not use recreational drugs. - History of Current Complaint Chief Complaint: EDAbdPain Stated Complaint: UPPER ABD PAIN PER PT Time Seen by Provider: 04/22/19 02:33 Hx Obtained From: Patient Onset/Duration: Sudden Onset, Lasting Hours - since 2300 last night, Still Present Timing: Intermittent Episode Lasting Severity Initially: Moderate Severity Currently: Severe Pain Intensity: 9 Pain Scale Used: 0-10 Numeric Character: Sharp Aggravating Factor(s): Nothing Alleviating Factor(s): Nothing Associated Signs and Symptoms: Positive: Nausea, Other: - positive - SOB, ABD pain. Negative: Fever, Vomiting, Diarrhea Allergies/Adverse Reactions: Allergies Allergy/AdvReac Type Severity Reaction Status Date / Time amoxicillin Allergy Rash Verified 03/04/19 01:06 erythromycin base Allergy Rash Verified 03/04/19 01:06 lisinopril Allergy Swelling Verified 03/04/19 01:06 Of Face,Lips,& Throat Penicillins Allergy Rash Verified 03/04/19 01:06 Home Medications: Home Medications C,E,Zinc,Copper 11/Tcrmq0v/Lut [Ocuvite Adult 50 Plus Softgel] 1 each PO DAILY 04/22/19 [History Confirmed 04/22/19] Turmeric 400 mg PO DAILY 04/22/19 [History Confirmed 04/22/19] PMH/Surg Hx/FS Hx/Imm Hx Previously Healthy: No Endocrine/Hematology History: Denies: Hx Diabetes, Hx Thyroid Disease Cardiovascular History: Reports: Hx Hypertension Denies: Hx Pacemaker/ICD Respiratory History: Denies: Hx Asthma, Hx Chronic Obstructive Pulmonary Disease (COPD) GI History: Denies: Hx Ulcer History: Denies: Hx Dialysis, Hx Renal Disease Musculoskeletal History: Reports: Other Musculoskeletal History - morbid obesity Sensory History: Reports: Hx Contacts or Glasses Denies: Hx Hearing Aid Opthamlomology History: Reports: Hx Contacts or Glasses Psychiatric History: Denies: Hx Panic Disorder - Cancer History Hx Chemotherapy: No Hx Radiation Therapy: No - Surgical History Surgical History: Yes Surgery Procedure, Year, and Place: R KNEE Hx Anesthesia Reactions: No Infectious Disease History: No Infectious Disease History: Denies: Hx Hepatitis, Hx Human Immunodeficiency Virus (HIV), Traveled Outside the [place] in Last 30 Days - Family History Known Family History: Positive: Cardiac Disease, Hypertension, Diabetes, Renal Disease - Social History Alcohol Use: Weekly Alcohol Amount: 3x/week Hx Substance Use: No Substance Use Type: Reports: None Hx Tobacco Use: No Smoking Status (MU): Never Smoked Tobacco Review of Systems - ROS Summary Review of Systems Summary: Home Medications C,E,Zinc,Copper 11/Ldjna9q/Lut [Ocuvite Adult 50 Plus Softgel] 1 each PO DAILY 04/22/19 [History Confirmed 04/22/19] Turmeric 400 mg PO DAILY 04/22/19 [History Confirmed 04/22/19] Negative: Fever Positive: Shortness Of Breath Positive: Abdominal Pain, Nausea. Negative: Vomiting, Diarrhea All Other Systems Reviewed And Are Negative: Yes Physical Exam - Summary Physical Exam Summary: General: Obese, Well-nourished FEMALE. Moderate discomfort HEENT: Normocephalic, Atraumatic. Eyes: Conjuctiva normal, PERRL. Ears: TMs within normal limits. Nares: (-) discharge, (-) erythema. Oropharynx: Clear, mucous membranes moist, (-) exudates. Neck: Soft, FROM, (-) lymphadenopathy, (-) thyromegaly, (-) JVD. Cardiovascular: Normal sinus rhythm, (-) murmur. Lungs: Clear to auscultation bilaterally (-) wheezes, (-) rales, (-) rhonchi. Abdomen: Soft, Moderate epigastric and RUQ tenderness to palpation, non- distended, (-) organomegaly, normal bowel sounds. Back: (-) CVA tenderness Extremities: No edema. Skin: Warm, dry, (-) rash. Neuro: Alert and oriented x3, no focal deficits. Psychiatric: Mood normal, affect normal. Triage Information Reviewed: Yes Vital Signs On Initial Exam: Initial Vitals Temp Pulse Resp BP Pulse Ox 98.0 F 103 24 159/123 98 04/22/19 02:22 04/22/19 02:22 04/22/19 02:22 04/22/19 02:22 04/22/19 02:22 Vital Signs Reviewed: Yes Procedures - Sedation Patient Received Moderate/Deep Sedation with Procedure: No Diagnostics - Vital Signs Vital Signs Temp Pulse Resp BP Pulse Ox 04/22/19 02:22 98.0 F 103 24 159/123 98 - Laboratory Result Diagrams: 04/22/19 02:51 04/22/19 02:51 Lab Statement: Any lab studies that have been ordered have been reviewed, and results considered in the medical decision making process. - Radiology CXR Radiology Interpretation Completed By: ED Physician Summary of Radiographic Findings: Impression: no infiltrate or pleural effusion. - CT Abd/Pel CT Interpretation Completed By: Radiologist Summary of CT Findings: IMPRESSION: CT findings consistent with acute pancreatitis. No evidence of a walled off fluid collection. Peripancreatic inflammatory changes. The entire pancreatic parenchyma appears to enhance. No distention of the pancreatic duct. No focal pancreatic calcification. Gallbladder shows no calcified gallstone. No distention of the common pancreatic duct. These findings were reviewed by Dr. East. - EKG 0229 Cardiac Rate: NL - 95 BPM EKG Rhythm: Sinus Rhythm Summary of EKG Findings: EKG at 0229 shows sinus rhythm, 95 BPM, no STEMI Abdominal Pain Fem Course/Dx - Course Course Of Treatment: 48-year-old female with severe epigastric and right upper quadrant abdominal pain. Patient initially treated with IV fluids, Toradol and Zofran. Workup demonstrated significantly elevated amylase and lipase. CT demonstrated acute pancreatitis with no abscess or necrosis. Patient given more IV fluids and fentanyl for pain. Referred to hospitalist for admission. - Diagnoses Provider Diagnoses: Acute pancreatitis - Provider Notifications Discussed Care Of Patient With: Nabor Nagy Time Discussed With Above Provider: 05:45 Instructed by Provider To: Other - Dr. Nagy agrees to admit pt. Discharge ED - Sign-Out/Discharge Documenting (check all that apply): Patient Departure - admit - Discharge Plan Condition: Stable Disposition: ADMITTED TO [facility] Referrals: Kristin Townsend PA [Primary Care Provider] - - Billing Disposition and Condition Condition: STABLE Disposition: Admitted to [facility] - Attestation Statements Document Initiated by Scribe: Yes Documenting Scribe: Carson Ibarra Provider For Whom Scribe is Documenting (Include Credential): Dr. Elissa East MD Scribe Attestation: I, Carson Ibarra, scribed for Dr. Elissa East MD on 04/22/19 at 0559. Scribe Documentation Reviewed: Yes Provider Attestation: The documentation as recorded by the Carson gustafson accurately reflects the service I personally performed and the decisions made by me, Dr. Elissa East MD Status of Scribe Document: Viewed
[2019-04-22] MEDS ORDERED: NS 0.9% 1000 ML** 1,000 ML IV ONE ×3 (02:42→08:49)
[2019-04-22] MEDS ORDERED: Pantoprazole IV* 40 MG IV ONE (02:42)
[2019-04-22 03:01] LABS: ABS Eosinophils 0.2 10^3/ul (0-0.6); ABS Lymphocytes 1.7 10^3/ul (1.0-4.8); ABS Monocytes 0.6 10^3/ul (0-0.8); ABS Neutrophils 7.8 10^3/ul (1.5-7.7); Eosinophil % 1.6 %; Hematocrit 43 % (35-47); Hemoglobin 14.6 g/dL (12.0-16.0); Lymphocyte % 16.9 %; Mean Corpuscular HGB Conc 34 g/dL (31-36); Mean Corpuscular Hemoglobin 31 pg (27-31); Mean Corpuscular Volume 91 fL (80-97); Mean Platelet Volume 10.3 fL (7.4-10.4); Nucleated Red Blood Cells % 0.1; Platelet Count 184 10^3/uL (150-450); Red Blood Count 4.71 10^6 /uL (3.70-4.87); Red Cell Distribution Width 13 % (10-15); White Blood Count 10.3 10^3/uL (3.5-10.8)
[2019-04-22] MEDS ORDERED: Ketorolac INJ* 30 MG/ML 1 ML VIAL IV PUSH ONE (03:15)
[2019-04-22] MEDS ORDERED: Ondansetron INJ* 2 MG/ML VIAL IV ONE (03:15)
[2019-04-22 03:16] LABS: ALT 81 U/L (7-52); AST 154 U/L (13-39); Albumin 4.3 g/dL (3.2-5.2); Albumin/Globulin Ratio 1.5 (1-3); Alkaline Phosphatase 93 U/L (34-104); Anion Gap 8 mmol/L (2-11); BUN/Creatinine Ratio 14.7 (8-20); Blood Urea Nitrogen 14 mg/dL (6-24); CO2 Carbon Dioxide 28 mmol/L (22-32); Calcium 9.8 mg/dL (8.6-10.3); Chloride 100 mmol/L (101-111); EGFR African American 75.3 (>60); EGFR Non-African American 62.3 (>60); Globulin 2.9 g/dL (2-4); Glucose 168 mg/dL (70-100); Potassium 3.7 mmol/L (3.5-5.0); Sodium 136 mmol/L (135-145); Total Protein 7.2 g/dL (6.4-8.9)
[2019-04-22 03:23] LABS: HCG Pregnancy < 0.60 mIU/mL
[2019-04-22 03:44] LABS: Amylase 639 U/L (29-103)
[2019-04-22] MEDS ORDERED: Iohexol 300* (CONTRAST) 10 ML SDV IV ONE (03:57)
[2019-04-22] MEDS ORDERED: fentaNYL* 50 MCG/ML 2 ML VIAL (100 MCG VIAL) IV SLOW PU ONE (05:20)
[2019-04-22 05:52] LABS: Alcohol < 10 mg/dL (<10)
[2019-04-22] MEDS ORDERED: Morphine INJ* 2 MG/ML 1 ML SYRINGE (TWO MG - NEW SYRINGE VERSION) IV PRN (08:44)
[2019-04-22] MEDS ORDERED: Ondansetron INJ* 2 MG/ML VIAL IV PRN (08:44)
[2019-04-22] MEDS ORDERED: Morphine 4 MG/ML VIAL (1 ml) 4 MG/ML VIAL IV PRN (08:51)
[2019-04-22 09:10] LABS: Magnesium 1.7 mg/dL (1.9-2.7)
[2019-04-22] MEDS: Metoprolol Succinate XL TAB* 50 MG PO SCH (11:56)
[2019-04-22] MEDS: Pantoprazole IV* 40 MG IV SCH (11:57)
[2019-04-22] MEDS: NS 0.9% w/ 20 Meq KCL 1000 ML* 1,000 ML IV SCH ×2 (12:55→22:31)
[2019-04-22] MEDS: Heparin VIAL(*) 5000 UNITS/ML VIAL (FIVE THOUSAND) SUBCUT SCH ×2 (15:37→21:03)
[2019-04-22] MEDS ORDERED: Magnesium Sulfate IV* 2 GM in NS 0.9% 100 ML* 100 ML IVPB ONE (15:42)
[2019-04-22] MEDS ORDERED: Magnesium Sulfate 2 GM IV* 2 GM/50 ML BAG IVPB ONE (17:00)
--- NOTE | 2019-04-22 17:13 | HP ---
CC: ALEX Ramirez * HISTORY AND PHYSICAL: DATE OF ADMISSION: 04/22/19 PRIMARY CARE PROVIDER: ALEX Ramirez CHIEF COMPLAINT: Abdominal pain. HISTORY OF PRESENT ILLNESS: This is a 48-year-old female who presented to [facility] with sudden onset of abdominal pain, started last evening around 11 o'clock at night. She stated that it happened after her dinner. She had chicken, broccoli, and a couple of beers, then she woke up complaining of severe pain around 11 o'clock, progressively got worse, 03/10. She reported to the emergency room to be evaluated. Her pain did not resolve with Tums and continued to get worse and reminded her of similar symptoms when she had acute pancreatitis 2 to 3 years ago. Denies nausea or vomiting. No fever or chills. She felt bloated, but no diarrhea. No history of gallstones disease. No history of hypercalcemia or elevated cholesterol. PAST MEDICAL HISTORY: 1. Hypertension. 2. Pancreatitis. MEDICATIONS: 1. Zyrtec 10 mg daily. 2. Metoprolol XL 50 daily. 3. Turmeric 400 daily. 4. Zinc/copper. ALLERGIES: 1. She is allergic to AMOXICILLIN. 2. ERYTHROMYCIN caused a rash. 3. LISINOPRIL, swelling of the face. 4. PENICILLIN. SOCIAL HISTORY: She does not smoke. She drinks about 4 to 5 drinks a week. No drugs. She works as a rehab therapy manager. , 1 kid. FAMILY HISTORY: Her father had a history of hypertension and heart disease and renal failure, on dialysis. Mother is alive with blood pressure and colitis. REVIEW OF SYSTEMS: As per HPI, remaining otherwise negative. PHYSICAL EXAMINATION GENERAL: She is awake, alert, oriented, pleasant, in no acute distress. She appeared comparable. She did receive morphine in the emergency room. VITAL SIGNS: Temperature 98.7, pulse 83, respiratory rate 16, blood pressure 166/90. HEENT: Normocephalic, atraumatic. Extraocular muscles intact. NECK: Supple. No JVD. LUNGS: Clear to auscultation, bilateral. CARDIOVASCULAR: S1, S2. Regular rate and rhythm. ABDOMEN: Positive bowel sounds, soft, nontender, nondistended. EXTREMITIES: There is no pedal edema. DIAGNOSTIC STUDIES/LAB DATA: She had chemistries. Sodium 136, potassium 3.7, BUN 14, creatinine 0.9, glucose 168, phos 3.0, magnesium 1.7, AST 164, ALT 81, GGT 374. Amylase 639, lipase 5608. Serum alcohol less than 10. INR 1. CBC: White count 10, hemoglobin 14, hematocrit 43, platelets 184. EKG reveals sinus rhythm, rate 95, DC 185, QRS 98, QTc 465. Chest x-ray: No acute disease. CT abdomen shows acute pancreatitis. IMPRESSION: This is a 48-year-old female, presented for abdominal pain, found to have acute pancreatitis. 1. Acute pancreatitis. We will keep her n.p.o. except medication, IV fluid. Pain medication with morphine 2-4 mg for mild to moderate. Check her magnesium and phosphorus status. Put her on Protonix IV and Zofran p.r.n. for nausea or vomiting. Recheck the lab in the morning and advance diet as tolerated. 2. Hypertension. Continue her metoprolol. 3. DVT prophylaxis. Heparin 5000 subcutaneous. [id number]/[facility] #: [id number] [facility]ALTH SERVICESAngelica
[2019-04-23] MEDS: Heparin VIAL(*) 5000 UNITS/ML VIAL (FIVE THOUSAND) SUBCUT SCH ×3 (05:43→22:20)
[2019-04-23 06:00] LABS: ABS Eosinophils 0.2 10^3/ul (0-0.6); ABS Lymphocytes 1.8 10^3/ul (1.0-4.8); ABS Monocytes 0.4 10^3/ul (0-0.8); ABS Neutrophils 4.8 10^3/ul (1.5-7.7); Eosinophil % 2.2 %; Hematocrit 37 % (35-47); Hemoglobin 12.9 g/dL (12.0-16.0); Lymphocyte % 25.3 %; Mean Corpuscular HGB Conc 35 g/dL (31-36); Mean Corpuscular Hemoglobin 32 pg (27-31); Mean Corpuscular Volume 91 fL (80-97); Mean Platelet Volume 11.1 fL (7.4-10.4); Platelet Count 147 10^3/uL (150-450); Red Blood Count 4.07 10^6 /uL (3.70-4.87); Red Cell Distribution Width 13 % (10-15); White Blood Count 7.2 10^3/uL (3.5-10.8)
[2019-04-23 06:08] LABS: Albumin 3.5 g/dL (3.2-5.2); Albumin/Globulin Ratio 1.6 (1-3); BUN/Creatinine Ratio 12.4 (8-20); Calcium 8.2 mg/dL (8.6-10.3); EGFR African American 81.2 (>60); EGFR Non-African American 67.1 (>60); Globulin 2.2 g/dL (2-4); HDL Cholesterol 28.2 mg/dL; Magnesium 2.1 mg/dL (1.9-2.7); Phosphorus 2.8 mg/dL (2.5-5.0); Potassium 4.2 mmol/L (3.5-5.0); Total Bilirubin 1.3 mg/dL (0.2-1.0); Total Protein 5.7 g/dL (6.4-8.9)
[2019-04-23] MEDS: NS 0.9% w/ 20 Meq KCL 1000 ML* 1,000 ML IV SCH ×2 (07:06→17:26)
[2019-04-23] MEDS: Metoprolol Succinate XL TAB* 50 MG PO SCH (09:27)
[2019-04-23] MEDS: Pantoprazole IV* 40 MG IV SCH (09:27)
[2019-04-23] MEDS ORDERED: Acetaminophen TAB* 325 MG PO PRN (12:32)
--- NOTE | 2019-04-23 12:36 | PN ---
Subjective Date of Service: 04/23/19 Interval History: patient was seen this morning, she states she feels better and had good apetite. Tolerated her clear liquid today well. no abdominal pain, mild headache. No nausea or vomit Past Medical History: Unchanged from Admission Objective Active Medications: Heparin Sodium (Porcine) (Heparin Vial(*)) 5,000 units SUBCUT Q8HR [facility] Last Admin: 04/23/19 05:43 Dose: 5,000 units Potassium Chloride/Sodium Chloride (Ns 0.9% W/ 20 Meq Kcl 1000 Ml*) 1,000 mls @ 80 mls/hr IV PER RATE [facility] Influenza Virus Vaccine (Fluarix Quad [id number] Syr) 0.5 ml IM .ONCE ONE Stop: 04/24/19 09:01 Metoprolol Succinate (Toprol Xl Tab*) 50 mg PO DAILY [facility] Last Admin: 04/23/19 09:27 Dose: 50 mg Ondansetron HCl (Zofran Inj*) 4 mg IV Q4H PRN PRN Reason: NAUSEA/VOMITING Pantoprazole Sodium (Protonix Tab*) 40 mg PO DAILY [facility] Vital Signs - 8 hr 04/23/19 04/23/19 04/23/19 07:16 08:00 10:54 Temperature 98.1 F 98.1 F Pulse Rate 81 89 Respiratory 18 18 18 Rate Blood Pressure 142/83 159/107 (mmHg) O2 Sat by Pulse 97 98 Oximetry Oxygen Devices in Use Now: None Appearance: awake, alert. no distress Eyes: No Scleral Icterus, - - EOMI Ears/Nose/Mouth/Throat: NL Teeth, Lips, Gums, Mucous Membranes Moist Neck: NL Appearance and Movements; NL JVP, Trachea Midline Respiratory: Symmetrical Chest Expansion and Respiratory Effort, Clear to Auscultation Cardiovascular: NL Sounds; No Murmurs; No JVD, RRR, No Edema Abdominal: NL Sounds; No Tenderness; No Distention Extremities: No Edema Skin: No Rash or Ulcers Neurological: Alert and Oriented x 3 Result Diagrams: 04/23/19 05:22 04/23/19 05:22 Assess/Plan/Problems-Billing Assessment: 48 y/o female admitted for acute pancreatitis secondary to dietary intake and alcohol - Patient Problems (1) Acute pancreatitis Current Visit: No Status: Acute Code(s): K85.90 - ACUTE PANCREATITIS WITHOUT NECROSIS OR INFECTION, UNSP SNOMED Code(s): 023511942 Comment: - Will advance to full liquid as she tolerated her clear liquids. - Will D/c morphine as no pain and has not required any so far. - Decrease IVF to 80 ml and discontinue at midgnight - Possible low fat diet in am and discharge in am if she continues to do well (2) HTN (hypertension) Current Visit: No Status: Acute Code(s): I10 - ESSENTIAL (PRIMARY) HYPERTENSION SNOMED Code(s): 13316255 Comment: - continue metoprolol (3) DVT prophylaxis Current Visit: No Status: Acute Code(s): EWY4691 - SNOMED Code(s): 090355676 Comment: BAMBI
[2019-04-24] MEDS: NS 0.9% w/ 20 Meq KCL 1000 ML* 1,000 ML IV SCH (06:09)
[2019-04-24] MEDS: Heparin VIAL(*) 5000 UNITS/ML VIAL (FIVE THOUSAND) SUBCUT SCH ×2 (06:09→12:46)
[2019-04-24] MEDS: Metoprolol Succinate XL TAB* 50 MG PO SCH (07:19)
[2019-04-24] MEDS ORDERED: Pantoprazole TAB * 40 MG TAB PO SCH (09:00)
[2019-04-24] MEDS ORDERED: Influenza VAC *QUAD* 2019-20* 0.5 ML SYRINGE IM ONE (09:00)
[2019-04-24 11:13] VITALS: BP 138/69
--- NOTE | 2019-04-24 12:23 | PN ---
Subjective Date of Service: 04/24/19 Interval History: patient seen today, doing well. no fever or chills. Awaiting to see how she does on solid low fat diet for lunch and if she remains with no pain and no vomit will plan on discharge her 2-3 hours post lunch. No fever or chills. Past Medical History: Unchanged from Admission Objective Active Medications: Acetaminophen (Tylenol Tab*) 650 mg PO Q4H PRN PRN Reason: PAIN Last Admin: 04/23/19 13:41 Dose: 650 mg Heparin Sodium (Porcine) (Heparin Vial(*)) 5,000 units SUBCUT Q8HR [facility] Last Admin: 04/24/19 06:09 Dose: 5,000 units Potassium Chloride/Sodium Chloride (Ns 0.9% W/ 20 Meq Kcl 1000 Ml*) 1,000 mls @ 80 mls/hr IV PER RATE [facility] Last Admin: 04/24/19 06:09 Dose: 80 mls/hr Metoprolol Succinate (Toprol Xl Tab*) 50 mg PO DAILY [facility] Last Admin: 04/24/19 07:19 Dose: 50 mg Ondansetron HCl (Zofran Inj*) 4 mg IV Q4H PRN PRN Reason: NAUSEA/VOMITING Pantoprazole Sodium (Protonix Tab*) 40 mg PO DAILY [facility] Last Admin: 04/24/19 07:19 Dose: 40 mg Vital Signs - 8 hr 04/24/19 04/24/19 04/24/19 07:06 07:23 11:12 Temperature 98.0 F 98.1 F Pulse Rate 80 78 Respiratory 22 22 16 Rate Blood Pressure 136/65 138/69 (mmHg) O2 Sat by Pulse 97 98 Oximetry Oxygen Devices in Use Now: None Appearance: awake, alert no fever or chills Eyes: No Scleral Icterus, - - EOMI Ears/Nose/Mouth/Throat: NL Teeth, Lips, Gums, Mucous Membranes Moist Neck: NL Appearance and Movements; NL JVP, Trachea Midline Respiratory: Symmetrical Chest Expansion and Respiratory Effort, Clear to Auscultation Cardiovascular: NL Sounds; No Murmurs; No JVD, No Edema Abdominal: NL Sounds; No Tenderness; No Distention Extremities: No Edema Skin: No Rash or Ulcers Neurological: Alert and Oriented x 3 Result Diagrams: 04/23/19 05:22 04/23/19 05:22 Assess/Plan/Problems-Billing Assessment: 48 y/o female admitted for acute pancreatitis secondary to dietary intake and alcohol - Patient Problems (1) Acute pancreatitis Current Visit: No Status: Acute Code(s): K85.90 - ACUTE PANCREATITIS WITHOUT NECROSIS OR INFECTION, UNSP SNOMED Code(s): 105339987 Comment: - Will advance to low fat and if she tolerates her diet well d/ c home this afternoon - off morphine as no pain and has not required any so far. - d/c IVF (2) HTN (hypertension) Current Visit: No Status: Acute Code(s): I10 - ESSENTIAL (PRIMARY) HYPERTENSION SNOMED Code(s): 20746357 Comment: - continue metoprolol (3) DVT prophylaxis Current Visit: No Status: Acute Code(s): EKQ8616 - SNOMED Code(s): 145570228 Comment: BAMBI
--- NOTE | 2019-04-24 22:07 | DS ---
CC: ALEX Ramirez DISCHARGE SUMMARY: DATE OF ADMISSION: 04/22/19 DATE OF DISCHARGE: 04/24/19 FINAL DISCHARGE DIAGNOSES: 1. Acute pancreatitis. 2. Hypertension. HOSPITAL COURSE: The patient was admitted to [facility] on 04/22/19 for sudden onset of a bdominal pain followed by nausea and vomiting shortly after her supper, which was slightly fatty. Jenny saab was admitted to medical service for acute pancreatitis after her lipase was noted to be elevated at 5608 with amylase of 639. She was started on IV fluids, n.p.o., pain control, and the following day her amylase was down to 128 and lipase to 136. She also had slight elevation of her AST/ALT 154/81 w ith GGT of 374 suggestive of alcohol-induced pancreatitis, improved down to 80 the following day and AST down to 54. She was advanced to clear liquid the following day and then full liquid and today jenny saab was placed on low-fat diet. She had the lunch which she tolerated well and the patient is agreeable for discharge with a strict low-fat diet and alcohol cessation. Hence, the patient was evaluated an d is stable for discharge today. PHYSICAL EXAMINATION: Please refer to my progress note done earlier today. DISCHARGE MEDICATIONS: 1. Continue her metoprolol 50 mg daily. 2. I provided her Protonix 40 mg daily for 1 month. 3. Resume her home medications fish oil with zinc daily. 4. Zyrtec 10 daily. 5. Turmeric 400 daily. INPATIENT DIAGNOSTIC STUDY: CBC is fairly unremarkable. Low white count, hemoglobin 12.9 on dischar ge, hematocrit 37, platelets 147,000. Chemistry is significant for lipase of 5608, down to 236 the ; amylase 639, down to 128; ALT 81, down to 80; AST 154, down to 54; total bilirubin is 1 .3, study stable on 2 occasions. Drug screen, serum alcohol was less than 10. Imaging: She had a chest x-ray on 04/22/19. The report reveals no acute pulmonary disease. CT scan of the abdomen and pelvis on 04/22/19 reveals findings consistent with acute pancreatitis. No evide nce of walled-off fluid collection, peripancreatic inflammation changes. The entire pancreatic paren chyma appears to enhance. No distention of the pancreatic duct. No focal pancreatic calcification. Gallbladder shows no calcified stones. No distention of the common pancreatic duct. DISCHARGE RECOMMENDATIONS: Follow with primary care in 1 to 2 weeks. DISCHARGE DISPOSITION: Home. DISCHARGE CONDITION: Stable. [id number]/[facility] #: [id number]
== END 2019-04-24 14:05 | disposition home or self-care (01) | DRG 282 ==
LOC: ED 02:20 → MED 08:44
PROVIDERS: ADMIT Internal Medicine; ATTEND Internal Medicine
DX: K85.20 Alcohol induced acute pancreatitis without necrosis or infection (principal); Z68.42 Body mass index [BMI] 45.0-49.9, adult; I10 Essential (primary) hypertension; E66.01 Morbid (severe) obesity due to excess calories; R74.8 Abnormal levels of other serum enzymes; Z88.0 Allergy status to penicillin; Z88.1 Allergy status to other antibiotic agents; Z88.8 Allergy status to other drugs, medicaments and biological substances; Z83.3 Family history of diabetes mellitus; Z72.89 Other problems related to lifestyle; Z23 Encounter for immunization
CPT/HCPCS: 36415; 71045; 74177; 80053; 80061; 80320; 82150; 82977; 83605; 83690; 83735; 84100; 84484; 84702; 85025; 85610; 90686; 93005; 99283; A9270-GY; G0480; J1644; J1885; J2405; J3010; J3475; Q9967